=== PATIENT | female | born 1975 | race American Indian/Alaskan Native ===

== ENCOUNTER 2017-11-09 10:25 | Emergency (ER) | payer OTHER ==
[2017-11-09] MEDS ORDERED: Sodium Chloride 0.9% 1,000 ML IV ONE (10:54)
[2017-11-09 11:23] LABS: BASO % 0.6 % (0.0-2.0); EOS # 0.1 K/uL (0.0-0.7); HEMOGLOBIN 11.5 g/dL (11.0-16.0); LYMPH # 2.3 K/uL (1.0-4.3); LYMPH % 31.8 % (20.0-40.0); MEAN CELL VOLUME 86.7 fL (81.0-99.0); MEAN CORPUSCULAR HEMOGLOBIN 29.5 pg (27.0-31.0); MEAN CORPUSCULAR HGB CONC 34.1 g/dL (33.0-37.0); MEAN PLATELET VOLUME 8.2 fL (7.2-11.7); MONO # 0.7 K/uL (0.0-0.8); MONO % 9.5 % (0.0-10.0); NEUT # 4.1 K/uL (1.8-7.0); NEUT % 57.1 % (50.0-75.0); RBC 3.88 Mil/uL (3.80-5.20); RED CELL DISTRIBUTION WIDTH 13.9 % (11.5-14.5); WHITE BLOOD COUNT 7.2 K/uL (4.8-10.8)
[2017-11-09 11:28] LABS: SQUAMOUS EPITHIAL 3 /hpf (0-5); URINE BILIRUBIN NEGATIVE (NEGATIVE); URINE BLOOD NEGATIVE (NEGATIVE); URINE CLARITY Clear (Clear); URINE COLOR Yellow (YELLOW); URINE GLUCOSE (UA) NORMAL (Normal); URINE LEUKOCYTE ESTERASE TRACE Leu/uL (Negative); URINE PROTEIN NEGATIVE (NEGATIVE); URINE UROBILINOGEN NORMAL mg/dL (0.2-1.0)
[2017-11-09 11:29] LABS: HCG,QUALITATIVE URINE NEGATIVE (NEGATIVE)
--- NOTE | 2017-11-09 11:29 | C.PDOC ---
History Of Present Illness 42 year old female present to ED complaining of intermittent rapid heart beat for the past several months. Patient reports having a light episode of epitaxis that lasted 1-2 minutes. Patient reports she has had similar episodes of epitaxis previously and admits to occasional dyspnea. Denies bleeding anywhere else, chest pain, cough, fever, vomiting, diarrhea, recent airplane travel, recent surgery history, cardiac disease, pulmonary embolism. Time Seen by Provider: 11/09/17 10:39 Chief Complaint (Nursing): Chest Pain History Per: Patient History/Exam Limitations: no limitations Onset/Duration Of Symptoms: Days Current Symptoms Are (Timing): Still Present Recent travel outside of the [place]: No Past Medical History Reviewed: Historical Data, Nursing Documentation, Vital Signs Vital Signs: Last Vital Signs Temp 98.8 F 11/09/17 12:30 Pulse 110 H 11/09/17 12:30 Resp 20 11/09/17 12:30 BP 148/82 11/09/17 12:30 Pulse Ox 99 11/09/17 12:30 - Medical History PMH: Asthma Surgical History: No Surg Hx Family History: States: No Known Family Hx - Social History Hx Alcohol Use: Yes Hx Substance Use: No - Immunization History Hx Tetanus Toxoid Vaccination: No Hx Influenza Vaccination: No Hx Pneumococcal Vaccination: No Review Of Systems Constitutional: Negative for: Fever, Chills ENT: Positive for: Other (mild episode of epitaxis) Cardiovascular: Positive for: Other (Intermittent tachycardia for past several months. ). Negative for: Chest Pain Respiratory: Positive for: Other (Occasional dyspnea). Negative for: Cough Gastrointestinal: Negative for: Nausea, Vomiting, Diarrhea Physical Exam - Physical Exam Appears: Non-toxic, No Acute Distress, Other (Mildy anxious) Skin: Warm, Dry Head: Atraumatic, Normacephalic Eye(s): bilateral: PERRL, EOMI Oral Mucosa: Moist Neck: Supple Chest: Symmetrical, No Deformity Cardiovascular: Rhythm Regular (Tachycardic), No Murmur Respiratory: Normal Breath Sounds, No Rales, No Rhonchi, No Wheezing Gastrointestinal/Abdominal: Soft, No Tenderness Extremity: No Pedal Edema, No Calf Tenderness Neurological/Psych: Oriented x3, Normal Speech, Normal Cognition Gait: Steady ED Course And Treatment - Laboratory Results Result Diagrams: 11/09/17 11:17 11/09/17 11:17 O2 Sat by Pulse Oximetry: 100 (RA) Pulse Ox Interpretation: Normal - Other Rad Chest x-ray X-Ray: Interpreted by Me, Viewed By Me Interpretation: FINDINGS: LUNGS: The lungs are well inflated and clear. PLEURA: No pneumothorax or pleural fluid seen. CARDIOVASCULAR: There is moderate cardiomegaly. OSSEOUS STRUCTURES: No significant abnormalities. VISUALIZED UPPER ABDOMEN: Normal. OTHER FINDINGS: None. IMPRESSION: No active pulmonary disease. Moderate cardiomegaly. Progress Note: EKG, chest x-ray, labs, IV fluids, urinalysis ordered. - Physician Consult Information Physician Contacted: Lawanda Gordon Outcome Of Conversation: Discussed patient with endocrinologisyt, recommends I start patient on Methimazole 5mg PO daily. Disposition Counseled Patient/Family Regarding: Studies Performed, Diagnosis, Need For Followup, Rx Given - Disposition Referrals: [facility] [Outside] Disposition: HOME/ ROUTINE Disposition Time: 15:00 Condition: STABLE Additional Instructions: FOLLOW UP IN THE MEDICAL CLINIC IN 1-2 DAYS USE MEDICATION DAILY RETURN TO ER IF SYMPTOMS WORSEN Prescriptions: Methimazole [Tapazole] 5 mg PO DAILY #30 tablet Instructions: Hyperthyroidism (Overactive Thyroid) (DC) Forms: [employer] (South African) Print Language: UKRAINIAN - Clinical Impression Clinical Impression: Hyperthyroidism, Tachycardia - Scribe Statement The provider has reviewed the documentation as recorded by the Dianna Miles Kelton Provider Attestation: All medical record entries made by the Dianna were at my direction and personally dictated by me. I have reviewed the chart and agree that the record accurately reflects my personal performance of the history, physical exam, medical decision making, and the department course for this patient. I have also personally directed, reviewed, and agree with the discharge instructions and disposition.
--- NOTE | 2017-11-09 11:32 | RAD ---
Date of service: 11/09/2017 PROCEDURE: CHEST RADIOGRAPH, 1 VIEW HISTORY: tachycardia COMPARISON: None available. FINDINGS: LUNGS: The lungs are well inflated and clear. PLEURA: No pneumothorax or pleural fluid seen. CARDIOVASCULAR: There is moderate cardiomegaly. OSSEOUS STRUCTURES: No significant abnormalities. VISUALIZED UPPER ABDOMEN: Normal. OTHER FINDINGS: None. IMPRESSION: No active pulmonary disease. Moderate cardiomegaly.
[2017-11-09 11:38] LABS: ALB/GLOB RATIO 1.4 (1.0-2.1); ALBUMIN 3.7 g/dL (3.5-5.0); ALT/SGPT 64 U/L (9-52); AST/SGOT 49 U/L (14-36); BLOOD UREA NITROGEN 10 mg/dL (7-17); CALCIUM 9.9 mg/dl (8.6-10.4); GFR NON-AFRICAN AMERICAN > 60
[2017-11-09 11:45] LABS: INR 1.1; PROTHROMBIN TIME 12.4 SECONDS (9.7-12.2)
[2017-11-09 11:51] LABS: CK-MB 1.09 ng/mL (0.0-3.38)
[2017-11-09 12:00] LABS: BARBITURATES, UR NEGATIVE (NEGATIVE); BENZODIAZEPINES, UR NEGATIVE (NEGATIVE); OPIATES, UR NEGATIVE (NEGATIVE); PHENCYCLIDINE, UR NEGATIVE (NEGATIVE)
[2017-11-09 13:46] LABS: T4 9.34 ug/dL (5.5-11.0)
[2017-11-09 13:59] LABS: T3 1.18 nmol/L (1.49-2.60)
[2017-11-09] MEDS ORDERED: methIMAzole 5 MG TAB PO STA (14:48)
[2017-11-09 14:50] VITALS: O2SAT 100
[2017-11-09 15:05] VITALS: BP 136/80; PULSE 96; RESP 18; TEMP 98.2
--- NOTE | 2017-11-11 11:31 | CARD ---
APPROVED REPORT Date of service: 11/09/2017 EKG Measurement Heart [id number] <Conclusion> Sinus tachycardia Right atrial enlargement Borderline ECG
== END 2017-11-09 15:11 | disposition home or self-care (01) ==
LOC: C.ER 10:25
DX: E05.90 Thyrotoxicosis, unspecified without thyrotoxic crisis or storm (principal); R00.0 Tachycardia, unspecified; J45.909 Unspecified asthma, uncomplicated
CPT/HCPCS: 36415; 71045; 80053; 80324; 80345; 80346; 80349; 80353; 80358; 80361; 81001; 82550; 82553; 83992; 84439; 84443; 84481; 84484; 84703; 85025; 85378; 85610; 85730; 93005; 96360; 99285; J7030